=== PATIENT | male | born 2000 | race African-American/Black ===

== ENCOUNTER 2021-01-27 12:05 | Emergency (ER) | payer MEDICARE, OTHER ==
[~2021-01-27] VITALS: Ht 177.8 cm; Wt 67.8 kg
[2021-01-27] MEDS ORDERED: FAMOTIDINE 20 MG/2 ML VIAL IV STA (12:42)
[2021-01-27] MEDS ORDERED: ONDANSETRON HCL INJ 2MG/ML 2ML 2 MG/ML VIAL IV STA (12:42)
[2021-01-27] MEDS ORDERED: SODIUM CHLORIDE 0.9% 1000ML 1,000 ML IV STA (12:42)
[2021-01-27] MEDS ORDERED: DICYCLOMINE HCL 20 MG/2 ML VIAL IM ONE ×2 (12:45→13:08)
[2021-01-27] MEDS ORDERED: SODIUM CHLORIDE 0.9% 1000ML 1,000 ML ONE (13:08)
[2021-01-27] MEDS ORDERED: SODIUM CHLORIDE 0.9% 50ML 50 ML ONE (13:29)
[2021-01-27] MEDS ORDERED: DIATRIZOATE MEGL/DIATRIZOA SOD 30 ML BTL PO ONE (13:29)
[2021-01-27] MEDS ORDERED: IOPAMIDOL 370 MG/ML 200 ML INFUS..BTL INJ ONE (13:30)
[2021-01-27 13:36] LABS: BASOPHILS % 0.6 % (0.0-1.0); EOSINOPHILS % 0.4 % (0.0-6.0); HEMATOCRIT 51.1 % (38.2-49.6); HEMOGLOBIN 18.7 g/dL (14.0-18.0); LYMPHOCYTES # (AUTO) 0.4 (1.0-3.2); LYMPHOCYTES % 5.4 % (18.0-39.1); MEAN CORPUSCULAR HEMOGLOBIN 33.1 pg (28-32); MEAN CORPUSCULAR HGB CONC 36.6 g/dL (31-35); MEAN CORPUSCULAR VOLUME 90.4 fL (81-99); MONOCYTES # (AUTO) 0.2 (0.2-0.8); MONOCYTES % 2.8 % (4.4-11.3); NEUTROPHILS # (AUTO) 6.2 (2.1-6.9); NEUTROPHILS % 90.2 % (38.7-80.0); RED BLOOD COUNT 5.65 x10e6/uL (4.3-5.7)
[2021-01-27 13:38] LABS: PLATELET COUNT 45 x10e3/uL (140-360)
[2021-01-27 13:51] LABS: ALBUMIN 4.2 g/dL (3.5-5.0); BILIRUBIN,DIRECT 2.2 mg/dL (0.0-0.5)
[2021-01-27 13:58] LABS: CREATINE KINASE MB 0.9 ng/mL (0-5.0)
[2021-01-27 15:27] LABS: INR 2.65
[2021-01-27 15:28] LABS: PARTIAL THROMBOPLASTIN TIME 38.1 seconds (23.8-35.5)
== END 2021-01-27 19:30 | disposition short-term general hospital (02) ==
LOC: FSED 12:16
DX: K72.00 Acute and subacute hepatic failure without coma (principal); R10.10 Upper abdominal pain, unspecified; R11.2 Nausea with vomiting, unspecified; R74.01 Elevation of levels of liver transaminase levels; D68.9 Coagulation defect, unspecified; D69.6 Thrombocytopenia, unspecified; F10.10 Alcohol abuse, uncomplicated; F17.210 Nicotine dependence, cigarettes, uncomplicated
CPT/HCPCS: 36415; 74177; 80048; 80076; 81003; 82550; 82553; 85025; 85610; 85730; 96372; 96374; 96376; 99284; J0500; J2405; J7030; Q9967